=== PATIENT | female | born 1960 | race Caucasian/White ===

== ENCOUNTER 2022-10-05 21:37 | Emergency (ER) | payer BC, SELFPAY ==
--- OUTSIDE RECORDS SUMMARY | 2022-10-05 21:40 | XMS REPORT | Continuity of Care Document ---
:1960 Author Organization [facility] t Address [address] [place] [address] [place] [id number] Care Team Providers Name Role Phone Fabiola Attending Clinician Unavailable Porfirio Donato Attending Clinician Unavailable Moriah Rao Attending Clinician Fabiola Admitting Clinician Unavailable Porfirio Donato Admitting Clinician Unavailable Payers Payer Name Policy Type Policy Number Effective Date Expiration Date [id number] 2021 00:00:00 [place] Problems Condition Condition Condition Status Onset Resolution Last Treating Co mments Source Name Details Category Date Date Treatment Clinician Date Abdominal Abdominal Problem Active 2015-08-26 Memoria bloating bloating 5- 00:20:36 l (finding) (finding) 00:00: Herm concepción Active 00 06/25/2011 Problem 08/26/2015 Data migrated from [employer] on 07/25/14. [facility] Atypical Atypical Problem Active 2015-08-26 Memoria chest pain chest pain 5- 00:20:36 l (finding) (finding) 00:00: Herm concepción Active 00 06/25/2011 Problem 08/26/2015 Data migrated from [employer] on 07/25/14. [facility] Edema of Edema of Problem Active 2015-08-26 Memoria lower lower 5- 00:20:36 l extremity extremity 00:00: Herm concepción (finding) (finding) 00 Active 06/25/2011 Problem 08/26/2015 Data migrated from [employer] on 07/25/14. [facility] Fatigue Fatigue Problem Active 2015-08-26 Me moria (finding) (finding) 5- 00:20:36 l Active 00:00: [place] 06/25/2011 00 Problem 08/26/2015 Data migrated from [employer] on 07/25/14. [facility] Menopausal Menopausa Problem Active 2015-08-26 Memoria flushing l flushing 5- 00:20:36 l (finding) (finding) 00:00: Herm concepción Active 00 06/25/2011 Problem 08/26/2015 Data migrated from [employer] on 07/25/14. [facility] Migraine Migraine Problem Active 2015-08-26 Memoria with aura with aura 5- 00:20:36 l (disorder) (disorder) 00:00: He rmann Active 00 06/25/2011 Problem 08/26/2015 Data migrated from [employer] on 07/25/14. [facility] Dizziness Dizziness Diagnosis Active 2021-01-08 Memoria Active 04:03:47 l Diagnosis Jose 01/08/2021 CL Cardiovasc ular Precordial Precordia Diagnosis Active 2021-01-08 Memoria pain l pain 04:03:47 l Active Jose Diagnosis 01/08/2021 CL Cardiovasc ular Palpitatio Palpitati Diagnosis Active 2021-01-08 Memoria ns ons Active 04:03:47 l Diagnosis Jose 01/08/2021 CL Cardiovasc ular Carotid Carotid Diagnosis Active 2021-01-08 Memoria bruit, bruit, 04:03:47 l unspecifie unspecifie [facility] d d laterality laterality Active Diagnosis 01/08/2021 CL Cardiovasc ular Anxiety Anxiety Problem Active 2015-08-26 Me moria disorder disorder 00:20:36 l (disorder) (disorder) He rmann Active Problem 08/26/2015 Data migrated from [employer] on 07/25/14. [facility] SCIATIC SCIATIC Diagnosis Active 2015-07-30 Memoria NERVE NERVE 16:14:00 l Active Rashawn lehman [facility]ly [facility], [facility] Allergies, Adverse Reactions, Alerts Allergy Allergy Status Severity Reaction(s) Onset Inactive Treating Comm ents Source Name Type Date Date Clinician Stephen Mitchell Active Info Not 2020-02 Gene sonia Available 0-19 l 00:00: [place] 00 codeine DA Active [facility] 05[facility]20 [place] 00:00: d 00 [facility] codeine DA Active U [facility] 05-20 [place] 00:00: d 00 [facility] [place] Social History Smoking Status Start Date Stop Date Source Former Smoker [facility] Medications Ordered Filled Start Stop Current Ordering Indication Dosage Frequency Signature Comments Components Source Medication Medication Date Date Medication? Clinician (SIG) Name Name Adderall 2020-02 Yes Mohamed 1 tablet Me moria 1-16 Madelin l 04:03: Jose Womack Ambien 2020-02 Yes Mohamed 1 tablet Gene sonia 1-16 Madelin at bedtime l 04:03: as needed Jose Atorvastati 2020-02 Yes Mohamed 1 tablet Memoria n Calcium 1-16 Madelin l 04:03: Jose Celebrex 2020-02 Yes Mohamed not Memori a 1-16 Madelin defined l 04:03: Jose atorvastati atorvastati No atorvastat [facility] n 20 mg n 20 mg in 20 mg Medic al tablet TAKE tablet TAKE tablet 1 TABLET BY 1 TABLET BY TAKE 1 MOUTH EVERY MOUTH EVERY TABLET BY NIGHT AT NIGHT AT MOUTH BEDTIME BEDTIME EVERY NIGHT AT BEDTIME azithromyci azithromyci No azithromyc [facility] n 250 mg n 250 mg in 250 mg Me dical tablet TAKE tablet TAKE tablet 2 TABLETS 2 TABLETS TAKE 2 BY MOUTH BY MOUTH TABLETS BY FOR 1 DAY FOR 1 DAY MOUTH FOR THEN TAKE 1 THEN TAKE 1 1 DAY THEN TABLET BY TABLET BY TAKE 1 MOUTH DAILY MOUTH DAILY TABLET BY FOR 4 DAYS FOR 4 DAYS MOUTH DAILY FOR 4 DAYS bromphenira bromphenira No bromphenir [facility] mine-pseudo mine-pseudo amine-pseu Medical ephedrine-D ephedrine-D doephedrin M 2 mg-30 M 2 mg-30 e-DM 2 mg-10 mg/5 mg-10 mg/5 mg-30 mL oral mL oral mg-10 mg/5 syrup TAKE syrup TAKE mL oral 10 ML BY 10 ML BY syrup TAKE MOUTH EVERY MOUTH EVERY 10 ML BY 8 HOURS 8 HOURS MOUTH NEEDED FOR NEEDED FOR EVERY 8 COUGH AND COUGH AND HOURS CONGESTION CONGESTION NEEDED FOR COUGH AND CONGESTION cephalexin cephalexin No 1capsul cephalexin [facility] 250 mg 250 mg e(s) 250 mg Medical capsule capsule capsule Take 1 Take 1 Take 1 capsule by capsule by capsule by oral route oral route oral route as as as directed. directed. directed. dextroamphe dextroamphe No dextroamph [facility] tamine-amph tamine-amph etamine-am Medical etamine 20 etamine 20 phetamine mg tablet mg tablet 20 mg TAKE 1 TAKE 1 tablet TABLET BY TABLET BY TAKE 1 MOUTH EVERY MOUTH EVERY TABLET BY DAY DAY MOUTH EVERY DAY eletriptan eletriptan No eletriptan [facility] 40 mg 40 mg 40 mg Medical tablet TAKE tablet TAKE tablet 1 TABLET BY 1 TABLET BY TAKE 1 MOUTH EVERY MOUTH EVERY TABLET BY DAY DAY MOUTH NEEDED FOR NEEDED FOR EVERY DAY MIGRAINES MIGRAINES NEEDED FOR MIGRAINES ergocalcife ergocalcife No ergocalcif [facility] rol rol des [facility] (vitamin (vitamin (vitamin D2) 1,250 D2) 1,250 D2) 1,250 mcg (50,000 mcg (50,000 mcg unit) unit) (50,000 capsule capsule unit) TAKE ONE TAKE ONE capsule CAPSULE BY CAPSULE BY TAKE ONE MOUTH WEEK MOUTH WEEK CAPSULE BY MOUTH WEEK meloxicam meloxicam No meloxicam [facility] 15 mg 15 mg 15 mg Medical tablet TAKE tablet TAKE tablet 1 TABLET BY 1 TABLET BY TAKE 1 MOUTH EVERY MOUTH EVERY TABLET BY DAY DAY MOUTH NEEDED FOR NEEDED FOR EVERY DAY PAIN PAIN NEEDED FOR PAIN ondansetron ondansetron No ondansetro [facility] 4 mg 4 mg n 4 mg Medical disintegrat disintegrat disintegra ing tablet ing tablet ting DISSOLVE 1 DISSOLVE 1 tablet TABLET ON TABLET ON DISSOLVE 1 THE TONGUE THE TONGUE TABLET ON EVERY 4 EVERY 4 THE TONGUE HOURS HOURS EVERY 4 HOURS oseltamivir oseltamivir No oseltamivi [facility] 75 mg 75 mg r 75 mg Medical capsule capsule capsule TAKE 1 TAKE 1 TAKE 1 CAPSULE BY CAPSULE BY CAPSULE BY MOUTH TWICE MOUTH TWICE MOUTH DAILY DAILY TWICE DAILY zolpidem 10 zolpidem 10 No zolpidem [facility] mg tablet mg tablet 10 mg Medi jostin TAKE 1 TAKE 1 tablet TABLET BY TABLET BY TAKE 1 MOUTH EVERY MOUTH EVERY TABLET BY NIGHT AT NIGHT AT MOUTH BEDTIME BEDTIME EVERY NEEDED FOR NEEDED FOR NIGHT AT SLEEP SLEEP BEDTIME NEEDED FOR SLEEP atorvastati atorvastati No atorvastat [facility] n 20 mg n 20 mg in 20 mg Medic al tablet TAKE tablet TAKE tablet 1 TABLET BY 1 TABLET BY TAKE 1 MOUTH EVERY MOUTH EVERY TABLET BY NIGHT AT NIGHT AT MOUTH BEDTIME BEDTIME EVERY NIGHT AT BEDTIME azithromyci azithromyci No azithromyc [facility] n 250 mg n 250 mg in 250 mg Me dical tablet TAKE tablet TAKE tablet 2 TABLETS 2 TABLETS TAKE 2 BY MOUTH BY MOUTH TABLETS BY FOR 1 DAY FOR 1 DAY MOUTH FOR THEN TAKE 1 THEN TAKE 1 1 DAY THEN TABLET BY TABLET BY TAKE 1 MOUTH DAILY MOUTH DAILY TABLET BY FOR 4 DAYS FOR 4 DAYS MOUTH DAILY FOR 4 DAYS bromphenira bromphenira No bromphenir [facility] mine-pseudo mine-pseudo amine-pseu Medical ephedrine-D ephedrine-D doephedrin M 2 mg-30 M 2 mg-30 e-DM 2 mg-10 mg/5 mg-10 mg/5 mg-30 mL oral mL oral mg-10 mg/5 syrup TAKE syrup TAKE mL oral 10 ML BY 10 ML BY syrup TAKE MOUTH EVERY MOUTH EVERY 10 ML BY 8 HOURS 8 HOURS MOUTH NEEDED FOR NEEDED FOR EVERY 8 COUGH AND COUGH AND HOURS CONGESTION CONGESTION NEEDED FOR COUGH AND CONGESTION celecoxib celecoxib No celecoxib [facility] 200 mg 200 mg 200 mg Medical capsule capsule capsule TAKE 1 TAKE 1 TAKE 1 CAPSULE BY CAPSULE BY CAPSULE BY MOUTH EVERY MOUTH EVERY MOUTH DAY DAY EVERY DAY NEEDED FOR NEEDED FOR NEEDED PAIN PAIN FOR PAIN cephalexin cephalexin No cephalexin [facility] 250 mg 250 mg 250 mg Medical capsule capsule capsule TAKE 1 TAKE 1 TAKE 1 CAPSULE BY CAPSULE BY CAPSULE BY MOUTH MOUTH MOUTH DIRECTED DIRECTED DIRECTED AFTER EACH AFTER EACH AFTER EACH VISIT VISIT VISIT cyclobenzap cyclobenzap No cyclobenza [facility] rine 5 mg rine 5 mg whit 5 mg Medical tablet TAKE tablet TAKE tablet 1 TABLET BY 1 TABLET BY TAKE 1 MOUTH EVERY MOUTH EVERY TABLET BY NIGHT AT NIGHT AT MOUTH BEDTIME BEDTIME EVERY NEEDED FOR NEEDED FOR NIGHT AT PAIN PAIN BEDTIME NEEDED FOR PAIN dextroamphe dextroamphe No dextroamph [facility] tamine-amph tamine-amph etamine-am Medical etamine 20 etamine 20 phetamine mg tablet mg tablet 20 mg TAKE 1 TAKE 1 tablet TABLET BY TABLET BY TAKE 1 MOUTH EVERY MOUTH EVERY TABLET BY DAY DAY MOUTH EVERY DAY eletriptan eletriptan No eletriptan [facility] 40 mg 40 mg 40 mg Medical tablet TAKE tablet TAKE tablet 1 TABLET BY 1 TABLET BY TAKE 1 MOUTH EVERY MOUTH EVERY TABLET BY DAY DAY MOUTH NEEDED FOR NEEDED FOR EVERY DAY MIGRAINES MIGRAINES NEEDED FOR MIGRAINES ergocalcife ergocalcife No ergocalcif [facility] (vitamin (vitamin (vitamin D2) 1,250 D2) 1,250 D2) 1,250 mcg (50,000 mcg (50,000 mcg unit) unit) (50,000 capsule capsule unit) TAKE ONE TAKE ONE capsule CAPSULE BY CAPSULE BY TAKE ONE MOUTH WEEK MOUTH WEEK CAPSULE BY MOUTH WEEK meloxicam meloxicam No meloxicam [facility] 15 mg 15 mg 15 mg Medical tablet TAKE tablet TAKE tablet 1 TABLET BY 1 TABLET BY TAKE 1 MOUTH EVERY MOUTH EVERY TABLET BY DAY DAY MOUTH NEEDED FOR NEEDED FOR EVERY DAY PAIN PAIN NEEDED FOR PAIN ondansetron ondansetron No ondansetro [facility] 4 mg 4 mg n 4 mg Medical disintegrat disintegrat disintegra ing tablet ing tablet ting DISSOLVE 1 DISSOLVE 1 tablet TABLET ON TABLET ON DISSOLVE 1 THE TONGUE THE TONGUE TABLET ON EVERY 4 EVERY 4 THE TONGUE HOURS HOURS EVERY 4 HOURS oseltamivir oseltamivir No oseltamivi [facility] 75 mg 75 mg r 75 mg Medical capsule capsule capsule TAKE 1 TAKE 1 TAKE 1 CAPSULE BY CAPSULE BY CAPSULE BY MOUTH TWICE MOUTH TWICE MOUTH DAILY DAILY TWICE DAILY zolpidem 10 zolpidem 10 No zolpidem [facility] mg tablet mg tablet 10 mg Medi jostin TAKE 1 TAKE 1 tablet TABLET BY TABLET BY TAKE 1 MOUTH EVERY MOUTH EVERY TABLET BY NIGHT AT NIGHT AT MOUTH BEDTIME BEDTIME EVERY NEEDED FOR NEEDED FOR NIGHT AT SLEEP SLEEP BEDTIME NEEDED FOR SLEEP Vital Signs Vital Name Observation Time Observation Value Comments Source BP Diastolic 2022-05-29 00:00:00 74 mm[Hg] [facility] Height 2022-05-29 00:00:00 63 [in_i] [facility] BMI (Body Mass Index) 2022-05-29 00:00:00 29.2 kg/m2 [facility] BP Systolic 2022-05-29 00:00:00 109 mm[Hg] [facility] Body Weight 2022-05-29 00:00:00 165 [lb_av] [facility] BP Diastolic 2022-04-18 00:00:00 74 mm[Hg] [facility] Height 2022-04-18 00:00:00 63 [in_i] [facility] BMI (Body Mass Index) 2022-04-18 00:00:00 31 kg/m2 [facility] BP Systolic 2022-04-18 00:00:00 109 mm[Hg] [facility] Body Weight 2022-04-18 00:00:00 175 [lb_av] [facility] Weight 2020-12-11 16:15:00 [facility] [place] Height 2020-12-11 16:15:00 [facility] Heart Rate 2020-12-11 16:15:00 [facility] [place] Diastolic (mm Hg) 2020-12-11 16:15[facility] 2020-12-11 16:15:00 [facility] [place] Procedures Procedure Date / Time Performed Performing Clinician Ron ricketts Excision of Colon [facility] Breast Surgery - [facility] Augmentation Cholecystectomy [facility] (Gallbladder) Hysterectomy - Abdominal [facility] Hysterectomy with [facility] Oopherectomy (Ovaries Removed) Prolapse, Vaginal Repair: [facility] Cystocele Repair W/ Mesh Plan of Care Planned Activity Planned Date Details Comments Source Diagnostic Test 2022-05-30 00:00:00 urinalysis, complete [facility] Pending [code = urinalysis, complete] Diagnostic Test 2022-05-29 00:00:00 urinalysis, dipstick [facility] Pending [code = urinalysis, dipstick] Encounters Start End Encounter Admission Attending Care Care Encounter Source Date/Time Date/Time Type Type Clinicians Facility Department ID 2022-09-18 2022-09-18 Outpatient [facility] [id number] [facility] 00:00:00 00:00:00 _Jaron [id number] [facility] 2022-08-21 2022-08-21 Outpatient [facility] [id number] [facility] 00:00:00 00:00:00 _Miller-M [id number] Med[facility] jostin 2022-07-24 2022-07-24 Outpatient [facility] [id number] [facility] 00:00:00 00:00:00 _Miller-M [id number] Med[facility] j[facility] 2022-06-26 2022-06-26 Outpatient [facility] [id number] [facility] 00:00:00 00:00:00 _Miller-M [id number] [facility] 2022-06-17 2022-06-17 Outpatient [facility] [id number] [facility] 00:00:00 00:00:00 _Miller-M [id number] Med[facility] j[facility] 2022-05-30 2022-05-30 Outpatient [facility]IV [id number] [facility] 00:00:00 00:00:00 _Miller-M [id number] [facility] 2022-05-29 2022-05-29 Outpatient [facility] PR[facility]IV [id number] [facility] 00:00:00 00:00:00 _Miller-M [id number] Medi jostin 2022-05-29 2022-05-29 [facility] [id number] [facility] 00:00:00 00:00:00 [facility] mary carmen: _[address], [address], [place] [address] , Ph. 2022-05-26 2022-05-26 Outpatient [facility] PR[facility] PRIV [id number] [facility] 00:00:00 00:00:00 _Miller-M [id number] Medi jostin 2022-05-22 2022-05-22 Outpatient [facility]IV [id number] [facility] 00:00:00 00:00:00 _Miller-M [id number] Medi jotsin 2022-05-02 2022-05-02 Outpatient [facility] [id number] [facility] 00:00:00 00:00:00 _Miller-M [id number] Medi jostin 2022-04-18 2022-04-18 Outpatient [facility] 528 [id number] [facility] 00:00:00 00:00:00 _Miller-M [id number] Medi jostin 2022-04-18 2022-04-18 [facility] 224 [facility] 00:00:00 00:00:00 [facility] mary carmen: _[address], [address], [place] [address] , Ph. 2022-04-17 2022-04-17 Outpatient [facility]IV [id number] [facility] 00:00:00 00:00:00 _Wojciech-Kelly [id number] Medi jostin 2021-12-18 2021-12-18 Outpatient [facility] 528 [id number] [facility] 00:00:00 00:00:00 _Wojciech-Kelly [id number] Medi jostin 2021-12-13 2021-12-13 Outpatient [facility] PR[facility] PRIV 528 [id number] [facility] 00:00:00 00:00:00 _Jaron [id number] Medi jostin 2021-10-24 2021-10-24 Outpatient [facility] PRIV 528 [id number] [facility] 00:00:00 00:00:00 _Wojciech-Kelly [id number] Medi jostin 2021-09-24 2021-09-24 Outpatient Porfirio Fenton HCAPM VIJI LA0 [id number] [facility] 08:00:00 08:00:00 90 [facility] 2020-12-28 2020-12-28 Outpatient James Livingston [id number] [facility] 12:30:00 12:30:00 Madelin Chery 2020-12-11 2020-12-11 Outpatient James Livingston [id number] [facility] 10:15:00 10:15:00 Madelin Chery 2020-09-19 2020-09-19 Outpatient Porfirio Fenton HCAPM VIJI LA0 [id number] [facility] 12:00:00 12:00:00 81 [facility] 2015-07-25 2015-08-24 OP Therapy nullFlavo [facility] [id number] Memoria 16:45:00 04:59:00 Patients r Brandi 00 l Clayton Garcia 2015-07-25 2015-08-23 Outpatient Jalen [id number] . [id number] 11:45:00 23:59:00 Nishith [id number] Umakant [id number] Results Test Description Test Time Test Comments Results Result Comments Source Urinalysis macro (dipstick) panel - Urine 2022-05-29 16:21:3 1 Test Item Value Reference Range Interpretation Comme nts Leukocytes (test code = Leukocytes) Negative Nitrite (test code = Nitrite) negative Protein (test code = Protein) Negative pH (test code = pH) 5.0 Blood (test code = Blood) Negative Ketone (test code = Ketone) Negative Glucose (test code = Glucose) Negative Appearance (test code = Appearance) Clear Color (test code = Color) Yellow [facility] macro (dipstick) panel - [id number] 11:09:05 Test Item Value Reference Range Interpretation Comments Leukocytes (test code = Leukocytes) Negative Nitrite (test code = Nitrite) negative Protein (test code = Protein) Negative pH (test code = pH) 5.0 Blood (test code = Blood) Negative Ketone (test code = Ketone) Negative Glucose (test code = Glucose) Negative Appearance (test code = Appearance) Clear Color (test code = Color) Yellow [facility]
[2022-10-05] MEDS ORDERED: ONDANSETRON 4 MG/2 ML VIAL ONE (21:59)
[2022-10-05] MEDS ORDERED: MORPHINE 4 MG/ML SYR ONE (21:59)
[2022-10-05] MEDS ORDERED: NA CHLORIDE 0.9% 1,000 ML ONE (22:42)
[2022-10-05] MEDS ORDERED: FAMOTIDINE 20 MG/2 ML VIAL IV ONE (22:42)
[2022-10-05 22:48] LABS: Specific Gravity 1.025 (1.005-1.030); Urine Bilirubin NEGATIVE (Negative); Urine Blood Negative (Negative); Urine Clarity Clear (Clear); Urine Color Light-Yellow (Yellow); Urine Glucose NEGATIVE (Negative); Urine Protein NEGATIVE (Negative); Urine Urobilinogen Normal (Normal); Urine pH 6.5 (5.0-7.0)
[2022-10-05 22:58] LABS: Absolute Lymphocytes (CBC) 0.6 K/uL (0.7-4.9); Hematocrit 46.9 % (36.0-45.0); Lymphocytes % 2.3 % (15.3-44.8); MPV 7.4 fL (7.6-11.3); Platelets 375 thou/uL (152-406); RBC Red Blood Cell Count 5.39 M/uL (3.86-4.86)
[2022-10-05 23:09] LABS: Albumin 3.8 g/dL (3.4-5.0); Bilirubin Total 0.3 mg/dL (0.2-1.0); Potassium 4.4 mEq/L (3.5-5.1); Protein, Total 7.3 g/dL (6.4-8.2)
[2022-10-06] MEDS ORDERED: FLEET ENEMA ADULT PR ONE (00:30)
[2022-10-06] MEDS ORDERED: PROMETHAZINE INJ 25 MG/ML AMP ONE (00:30)
[2022-10-06 00:31] LABS: Blood Morphology Comment NOT SEEN (NOT SEEN); Platelet Estimate ADEQ
[2022-10-06] MEDS ORDERED: LACTULOSE 20 GM/30 ML UCUP ONE (00:31)
--- NOTE | 2022-10-06 01:32 | EDPHYS ---
Physician Documentation [facility] Name: Luna Daugherty Age: 62 yrs Sex: Female : 1960 Arrival Date: 10/05/2022 Time: 21:37 Bed 7 Private MD: ED Physician Octavio Mccallum HPI: 10/05 23:08 This 62 yrs old Female presents to ER via EMS with complaints of Abdominal Pain, Back sb4 Pain. 23:08 The patient presents with abdominal pain in the epigastric area. Onset: The sb4 symptoms/episode began/occurred today. The symptoms radiate to back. Associated signs and symptoms: Pertinent positives: nausea and vomiting, constipation. Modifying factors: The symptoms are alleviated by nothing, the symptoms are aggravated by nothing. The patient has been recently seen by a physician: the patient's primary care provider. patient states she has been dealing with constipation for a few weeks now. she had a KUB done that showed severe constipation. she was prescribed some laxative/stool softener that she is not sure the name of but has been taking and still has not had a bowel movement in 3 days. she states now the pain is severe, she is not passing any gas, and she has been vomiting. Historical: - Allergies: 21:52 No Known Allergies; kd3 - Immunization history:: Adult Immunizations up to date. - Social history:: Smoking status: Patient/guardian denies using tobacco, but has a distant history of tobacco abuse. ROS: 23:08 Constitutional: Negative for fever, chills, and weight loss, Eyes: Negative for injury, sb4 pain, redness, and discharge, ENT: Negative for injury, pain, and discharge, Cardiovascular: Negative for chest pain, palpitations, and edema, Respiratory: Negative for shortness of breath, cough, wheezing, and pleuritic chest pain, Back: Negative for injury and pain, MS/Extremity: Negative for injury and deformity, Skin: Negative for injury, rash, and discoloration. 23:08 Abdomen/GI: Positive for abdominal pain, nausea and vomiting, constipation. 23:08 All other systems are negative. Exam: 23:08 Head/Face: Normocephalic, atraumatic. Eyes: Extra-ocular motions intact. Periorbital sb4 areas with no swelling, redness, or edema. ENT: Mucous membranes moist. Cardiovascular: Regular rate and rhythm with a normal S1 and S2. Respiratory: Lungs have equal breath sounds bilaterally, clear to auscultation and percussion. No rales, rhonchi or wheezes noted. No increased work of breathing, no retractions or nasal flaring. Skin: Warm, dry with normal turgor. Normal color with no rashes, no lesions, and no evidence of cellulitis. MS/ Extremity: Pulses equal, no cyanosis. Neurovascular intact. Full, normal range of motion. 23:08 Constitutional: The patient appears alert, awake, vomiting, in pain, uncomfortable 23:08 Abdomen/GI: Inspection: abdomen appears normal, Bowel sounds: diminished, in all quadrants, Palpation: soft, mild abdominal tenderness, in all quadrants. Vital Signs: 21:52 Weight 74.84 kg; Height 5 ft. 3 in. ; kd3 22:48 BP 128 / 61; Pulse 86; Resp 16; Temp 97.2(O); Pulse Ox 96% on R/A; kd3 23:08 BP 118 / 58; Pulse 83; Resp 18; Pulse Ox 95% on R/A; kd3 10/06 00:36 BP 118 / 69; Pulse 92; Resp 16; Pulse Ox 99% on R/A; kd3 02:13 BP 95 / 56; Pulse 80; Resp 16; Pulse Ox 95% on R/A; jb4 10/05 21:52 Body Mass Index 29.23 (74.84 kg, 160.02 cm) kd3 MDM: 10/05 21:42 Patient medically screened. sb4 23:08 Differential diagnosis: bowel obstruction, diverticulitis, non-specific abd pain, sb4 pancreatitis, constipation, colitis, stercoral colitis. 10/06 01:35 Data reviewed: vital signs, nurses notes, lab test result(s), radiologic studies, and sb4 as a result, I will discharge patient. Consideration of Admission/Observation Escalation of care including admission/observation considered. Historians other than the Patient: Spouse/Significant Other: . Counseling: I had a detailed discussion with the patient and/or guardian regarding: the historical points, exam findings, and any diagnostic results supporting the discharge/admit diagnosis, lab results, radiology results, the need for outpatient follow up, a mammal control agent. Special discussion: Based on the patient's Hx, exam, and Dx evaluation, there is no indication for emergent surgery or inpatient Tx. It is understood by the patient/guardian that if the Sx's persist or worsen they need to return immediately for re-evaluation. Special discussion: Based on the patient's Hx, exam, and Dx evaluation, there is no indication for emergent surgery or inpatient Tx. It is understood by the patient/guardian that if the Sx's persist or worsen they need to return immediately for re-evaluation. ED course: patient had a BM and is feeling better and is requesting to go home. 10/05 21:47 Order name: CBC with Diff; Complete Time: 00:40 sb4 10/05 21:47 Order name: CMP; Complete Time: 23:12 sb4 10/05 21:47 Order name: Lipase; Complete Time: 23:12 sb4 10/05 21:47 Order name: Urinalysis w/ reflexes; Complete Time: 22:52 sb4 10/05 23:02 Order name: Manual Differential; Complete Time: 00:40 EDMS 10/05 21:47 Order name: CT Abd/Pelvis - IV Contrast Only sb4 10/05 21:47 Order name: IV Saline Lock; Complete Time: 22:48 sb4 10/05 21:47 Order name: Labs collected and sent; Complete Time: 22:48 sb4 Administered Medications: 10/05 21:51 Drug: Ondansetron IVP 4 mg Route: IVP; Site: left antecubital; kd3 21:51 Drug: morphine IVP or IV 4 mg Route: IVP; Infused Over: 4 mins; Site: left antecubital; kd3 22:47 Drug: Famotidine IVP 20 mg Route: IVP; Site: left antecubital; kd3 22:48 Drug: NS 0.9% IV 1000 ml Route: IV; Rate: 1 bolus; Site: left antecubital; kd3 10/06 00:35 Drug: Lactulose PO 20 grams Volume: 30 ml; Route: PO; kd3 00:35 Drug: Fleet Enema NC 133 ml Route: NC; kd3 00:35 Drug: Promethazine IVP 12.5 mg Route: IVP; Site: left antecubital; kd3 Disposition: 03:13 Co-signature as Attending Physician, Octavio Mccallum MD I reviewed the patient's care rt provided by the Advanced Practice Provider and agree with the diagnosis and treatment plan. Disposition Summary: 10/06/22 01:31 Discharge Ordered Location: Home sb4 Problem: an ongoing problem sb4 Symptoms: have improved sb4 Condition: Stable sb4 Diagnosis - Constipation sb4 - Nausea with vomiting, unspecified sb4 Followup: sb4 - With: Kareem Romero MD - When: 2 - 3 days - Reason: Further diagnostic work-up, Recheck today's complaints, Re-evaluation by your physician Discharge Instructions: - Discharge Summary Sheet sb4 - Nausea and Vomiting, Adult sb4 - Constipation, Adult, [id number] sb4 Forms: - Medication Reconciliation Form sb4 - Thank You Letter sb4 - Antibiotic Education sb4 - Prescription Opioid Use sb4 - Patient Portal Instructions sb4 - Leadership Thank You Letter sb4 Prescriptions: - Lactulose 10 gram/15 mL Oral Solution - take 30 milliliters by ORAL route once daily; 300 milliliter; Refills: 0, sb4 Product Selection Permitted Signatures: Dispatcher [employer] Saira Enamorado RN RN kd3 Maxine Gilbert, PA-C PA-C sb4 Octavio Mccallum MD MD rt
--- NOTE | 2022-10-06 01:32 | ER ---
Nurse's Notes [facility] Name: Luna Daugherty Age: 62 yrs Sex: Female : 1960 Arrival Date: 10/05/2022 Time: 21:37 Bed 7 Private MD: Diagnosis: Constipation;Nausea with vomiting, unspecified Presentation: 10/05 21:43 Chief complaint: EMS states: At about 4 PM, the patient had some sudden nausea, kd3 vomiting and epigastric pain. She has reportedly vomited about 6 times since the pain started. She is also having some right lower back pain and has not had a bowel movement since . Reglan was given in route. 21:52 Coronavirus screen: Vaccine status: Patient reports being unvaccinated. Ebola Screen: kd3 No symptoms or risks identified at this time. Initial Sepsis Screen: Does the patient meet any 2 criteria? No. Patient's initial sepsis screen is negative. Does the patient have a suspected source of infection? No. Patient's initial sepsis screen is negative. Risk Assessment: Do you want to hurt yourself or someone else? Patient reports no desire to harm self or others. Onset of symptoms was October 05, 2022. 21:52 Method Of Arrival: EMS: [facility] kd3 21:52 Acuity: NERY 3 kd3 Triage Assessment: 21:52 General: Appears ill, Behavior is cooperative. Pain: Complains of pain in epigastric kd3 area Pain radiates to right low back. GI: Pt is actively vomiting undigested food. Historical: - Allergies: 21:52 No Known Allergies; kd3 - Immunization history:: Adult Immunizations up to date. - Social history:: Smoking status: Patient/guardian denies using tobacco, but has a distant history of tobacco abuse. Screenin:53 [facility] ED Fall Risk Assessment (Adult) History of falling in the last 3 months, kd3 including since admission No falls in past 3 months (0 pts) Confusion or Disorientation No (0 pts) Intoxicated or Sedated No (0 pts) Impaired Gait No (0 pts) Mobility Assist Device Used No (0 pt) Altered Elimination No (0 pt) Score/Fall Risk Level 0 - 2 = Low Risk Maintained a safe environment. Abuse screen: Denies threats or abuse. Denies injuries from another. 22:49 Nutritional screening: No deficits noted. Tuberculosis screening: No symptoms or risk kd3 factors identified. Assessment: 22:48 General: Appears comfortable, Behavior is calm, cooperative. Neuro: Level of kd3 Consciousness is awake, alert, obeys commands, Oriented to person, place, time, situation. Cardiovascular: Patient's skin is warm and dry. Respiratory: Airway is patent Trachea midline Respiratory effort is even, unlabored, Respiratory pattern is regular, symmetrical. 22:49 GI: Bowel sounds present X 4 quads. Abdomen is tender to palpation in epigastric area. kd3 10/06 02:13 Reassessment: Patient appears in no apparent distress at this time. Patient and/or jb4 family updated on plan of care and expected duration. Pain level reassessed. Patient is alert, oriented x 3, equal unlabored respirations, skin warm/dry/pink. Vital Signs: 10/05 21:52 Weight 74.84 kg; Height 5 ft. 3 in. ; kd3 22:48 BP 128 / 61; Pulse 86; Resp 16; Temp 97.2(O); Pulse Ox 96% on R/A; kd3 23:08 BP 118 / 58; Pulse 83; Resp 18; Pulse Ox 95% on R/A; kd3 08 00:36 BP 118 / 69; Pulse 92; Resp 16; Pulse Ox 99% on R/A; kd3 02:13 BP 95 / 56; Pulse 80; Resp 16; Pulse Ox 95% on R/A; jb4 10/05 21:52 Body Mass Index 29.23 (74.84 kg, 160.02 cm) kd3 ED Course: 10/05 21:41 Patient arrived in ED. jj6 21:42 Maxine Gilbert PA-C is PHCP. sb4 21:42 Octavio Mccallum MD is Attending Physician. sb4 21:42 Saira Adorno RN is Primary Nurse. kd3 21:52 Triage completed. kd3 21:52 Arm band placed on left wrist. kd3 22:48 CBC with Diff Sent. kd3 22:48 CMP Sent. kd3 22:48 Lipase Sent. kd3 22:48 Urinalysis w/ reflexes Sent. kd3 22:49 No provider procedures requiring assistance completed. Maintain EMS IV. Dressing kd3 intact. Good blood return noted. Site clean \T\ dry. Gauge \T\ site: 20 gauge left A/C. 23:42 CT Abd/Pelvis - IV Contrast Only In Process Unspecified. EDMS 10/06 01:31 Kareem Romero MD is Referral Physician. sb4 02:13 Patient has correct armband on for positive identification. Bed in low position. Call jb4 light in reach. Side rails up X 1. 02:13 IV discontinued, intact, bleeding controlled, No redness/swelling at site. Pressure jb4 dressing applied. Administered Medications: 10/05 21:51 Drug: Ondansetron IVP 4 mg Route: IVP; Site: left antecubital; kd3 21:51 Drug: morphine IVP or IV 4 mg Route: IVP; Infused Over: 4 mins; Site: left antecubital; kd3 22:47 Drug: Famotidine IVP 20 mg Route: IVP; Site: left antecubital; kd3 22:48 Drug: NS 0.9% IV 1000 ml Route: IV; Rate: 1 bolus; Site: left antecubital; kd3 10/06 00:35 Drug: Lactulose PO 20 grams Volume: 30 ml; Route: PO; kd3 00:35 Drug: Fleet Enema IA 133 ml Route: IA; kd3 00:35 Drug: Promethazine IVP 12.5 mg Route: IVP; Site: left antecubital; kd3 Medication: 10/05 22:49 VIS not applicable for this client. kd3 Outcome: 10/06 01:31 Discharge ordered by . sb4 02:13 Discharged to home via wheelchair, with family. jb4 02:13 Condition: stable 02:13 Discharge instructions given to patient, Instructed on discharge instructions, follow up and referral plans. medication usage, Demonstrated understanding of instructions, follow-up care, medications, Prescriptions given X 1. 02:15 Patient left the ED. jb4 Signatures: Dispatcher [employer] EDRI Terrance Mora RN RN jb4 Emily Foss Kyli, RN RN kd3 Maxine Gilbert, CHLOE CORONA sb4
[2022-10-06 02:21] VITALS: TEMP 97.2
[2022-10-06 02:24] VITALS: BP 95/56; O2SAT 95
--- NOTE | 2022-10-06 14:18 | RAD REPORT ---
EXAM DESCRIPTION: CT - Abdomen Pelvis W Contrast - 10/06/2022 6:55 am CLINICAL HISTORY: The patient is 62 years old and is Female; ABD PAIN TECHNIQUE: Axial computed tomography images of the abdomen and pelvis with intravenous contrast. S agittal and coronal reformatted images were created and reviewed. This CT exam was performed using one or more of the following dose reduction techniques: automated exposure control, adjustment of t he mA and/or kV according to patient size, and/or use of iterative reconstruction technique. COMPARISON: No relevant prior studies available. FINDINGS: Lung bases: Unremarkable. No mass. No consolidation. ABDOMEN: Liver: Nonspecific lobulated 2.8 cm cystic lesion in the right liver. Gallbladder and bile ducts: Gallbladder is surgically absent. Mild intrahepatic and extrahepatic biliary dilatation likely related to prior cholecystectomy . Pancreas: Unremarkable. No mass. No ductal dilation. Spleen: Unremarkable. No splenomegaly. Adrenals: Unremarkable. No mass. Kidneys and ureters: Unremarkable. No solid mass. No hydronephrosis. Stomach and bowel: Unremarkable. No obstruction. No mucosal thickening. PELVIS: Appendix: No findings to suggest acute appendicitis. Bladder: Unremarkable. Reproductive: Uterus is not seen. ABDOMEN and PELVIS: Intraperitoneal space: Unremarkable. No free air. No significant fluid collection. Bones/joints: No acute fracture. No dislocation. Soft tissues: Bilateral breast implants. Clips in the left lower quadrant. Vasculature: Scattered atherosclerotic vascular calcifications. No abdominal aortic aneurysm. Lymph nodes: Unremarkable. No enlarged lymph nodes. IMPRESSION: No acute finding in the abdomen/pelvis. Electronically signed by: Papa Reid MD 10/06/2022 12:07 AM CDT Due to temporary technical issues with the PACS/Fluency reporting system, reports are being signed by the in house radiologist without review as a courtesy to ensure prompt reporting. The interpreting r adiologist is fully responsible for the content of the report.
== END 2022-10-06 02:15 | disposition home or self-care (01) ==
LOC: ER 21:37
DX: K59.00 Constipation, unspecified (principal); R10.13 Epigastric pain
CPT/HCPCS: 85025; 36415; 81003; 83690; 80053; 74177; 96375; 96374; 99284; Q9967; J2550; J2405; J7030